=== PATIENT | female | born 1980 | race Hispanic/Latino ===

== ENCOUNTER 2024-08-18 18:00 | Inpatient (IN) | payer MEDICAID, OTHER ==
[2024-08-18 19:34] VITALS: BMI 26.6
[2024-08-18] MEDS ORDERED: Promethazine HCl 25 MG/ML VIAL IM PRN (20:25)
[2024-08-18] MEDS ORDERED: Methylergonovine 0.2 MG/ML VIAL IM PRN (20:25)
[2024-08-18] MEDS ORDERED: Carboprost 250 MCG/ML AMP IM PRN (20:25)
[2024-08-18] MEDS ORDERED: Tranexamic Acid 1,000 MG/10 ML VIAL IVP PRN (20:25)
[2024-08-18] MEDS ORDERED: Misoprostol 200 MCG TAB PR PRN (20:25)
[2024-08-18] MEDS ORDERED: Ibuprofen 800 MG TAB PO PRN (20:25)
[2024-08-18] MEDS ORDERED: hydrALAZINE 20 MG/ML VIAL SLOW IVP PRN (20:25)
[2024-08-18] MEDS ORDERED: Lidocaine 1% (PF) 30 ML VIAL SC PRN (20:25)
[2024-08-18] MEDS ORDERED: Acetaminophen 500 MG TAB PO PRN (20:25)
[2024-08-18] MEDS ORDERED: Ondansetron PF 4 MG/2 ML Vial IVP PRN (20:25)
[2024-08-18] MEDS ORDERED: HYDROcodone/Acetaminophen 5/325 mg Tablet PO PRN (20:25)
[2024-08-18] MEDS ORDERED: Diphenoxylate HCl/Atropine Tablet PO PRN (20:25)
[2024-08-18] MEDS ORDERED: Oxytocin 30 units/NS 500 ML 500 ML IV SCH ×3 (20:30)
[2024-08-18 20:34] LABS: Glucose 78 mg/dL (70-105)
[2024-08-18] MEDS: Lactated Ringer's 1,000 ML IV SCH (21:00)
[2024-08-18 21:18] LABS: Hematocrit 39.6 % (34.9-44.5); Hemoglobin 13.4 g/dL (12.0-15.5); Mean Corpuscular HGB CONC 33.8 g/dL (32.0-36.0); Mean Corpuscular Hemoglobin 33.5 pg (27.0-33.0); Platelet Count 189 10x3/uL (150-450); RBC Distribution Width 13.2 % (11.5-14.5); White Blood Cell (WBC) Count 6.1 10x3/uL (3.5-10.5)
[2024-08-18 22:29] LABS: HBsAg Index 0.19 S/CO (0-0.99); Hep B Surf Ag - L&D Non-Reactive S/CO (NonReactive)
[2024-08-18 22:30] LABS: Syphilis Antibody Nonreactive (Nonreactive); Syphilis Antibody Index 0.06 S/CO (<1.00 Non-Reactive)
[2024-08-19] MEDS: fentaNYL 2 mcg/Ropivacaine 0.2% Epidural 100 ML CADD EPIDURAL SCH (08:50)
[2024-08-19] MEDS ORDERED: ePHEDrine Sulfate 50 MG/10 ML VIAL SLOW IVP PRN (08:53)
[2024-08-19] MEDS ORDERED: Promethazine HCl 25 MG/ML VIAL IM PRN (08:53)
[2024-08-19] MEDS ORDERED: Lactated Ringer's 500 ML IV PRN (08:53)
[2024-08-19] MEDS ORDERED: diphenhydrAMINE 50 MG/ML VIAL IVP PRN (08:53)
[2024-08-19] MEDS ORDERED: Ondansetron PF 4 MG/2 ML Vial IVP PRN (08:53)
[2024-08-19] MEDS ORDERED: Acetaminophen 325 MG TAB PO PRN (08:53)
[2024-08-19] MEDS ORDERED: Naloxone HCl 0.4 mg/ml Vial IVP PRN ×2 (08:53)
[2024-08-19] MEDS ORDERED: Moisturizing Cream (Eucerin) 113 GM JAR TOP PRN (08:53)
[2024-08-19] MEDS ORDERED: Communication Order-Pharmacy FS SCH (09:00)
[2024-08-19] MEDS ORDERED: hydrALAZINE 20 MG/ML VIAL SLOW IVP PRN (14:55)
[2024-08-19] MEDS ORDERED: Bisacodyl 10 MG SUPP PR PRN (14:55)
[2024-08-19] MEDS ORDERED: Boostrix 0.5 ML (Tdap) VIAL (>/=7 yrs of age) IM ONE (14:55)
[2024-08-19] MEDS ORDERED: Milk Of Magnesia 30 ML UDCUP PO PRN (14:55)
[2024-08-19] MEDS ORDERED: diphenhydrAMINE 25 MG CAP PO PRN (14:55)
[2024-08-19] MEDS ORDERED: Lanolin Ointment 7 GM TUBE TOP PRN (14:55)
[2024-08-19] MEDS ORDERED: Benzocaine-Menthol 82.5 ML CAN TOP PRN (14:55)
[2024-08-19] MEDS: fentaNYL/Ropivacaine Epidural 100 ML ONE (16:10)
[2024-08-19] MEDS: Ferrous Sulfate 325 MG TAB PO SCH (16:10)
[2024-08-19] MEDS: Ibuprofen 800 MG TAB PO SCH (16:16)
[2024-08-19] MEDS: Docusate 100 MG CAP PO SCH (21:01)
[2024-08-19] MEDS: HYDROcodone/Acetaminophen 5/325 mg Tablet PO PRN (23:59)
[2024-08-20] MEDS: Prenatal Vitamin 1 TAB PO SCH (07:36)
[2024-08-20 11:07] VITALS: BP 108/60; TEMP 98.1
== END 2024-08-20 17:00 | disposition home or self-care (01) | DRG 807 ==
LOC: CSHLD 18:08 → CSHPP 08-19 14:01 → CSHLD 08-19 14:02 → CSHPP 08-19 15:36
PROVIDERS: ADMIT Family Medicine; ATTEND Family Medicine
PROC: 10E0XZZ Delivery of Products of Conception, External Approach (ICD-10-PCS; principal; 2024-08-19)
PROC: 0UQGXZZ Repair Vagina, External Approach (ICD-10-PCS; 2024-08-19)
DX: O24.420 Gestational diabetes mellitus in childbirth, diet controlled (principal); Z37.0 Single live birth; Z3A.39 39 weeks gestation of pregnancy; O70.0 First degree perineal laceration during delivery; O69.81X0 Labor and delivery complicated by cord around neck, without compression, not applicable or unspecified; O09.523 Supervision of elderly multigravida, third trimester; Z79.82 Long term (current) use of aspirin
CPT/HCPCS: 36416; 51702; 82947; 85027; 86780; 86850; 86900; 86901; 87340; J7120